=== PATIENT | male | born 1965 | race Caucasian/White ===

== ENCOUNTER 2016-08-28 21:34 | Inpatient (IN) | payer OTHER ==
[~2016-08-28] VITALS: Ht 188 cm; Wt 79.4 kg
[~2016-08-28 21:34] MED LIST: ATIVAN0.5 MG OR; IBUPROFEN600 MG PO; KLONOPIN1 MG PO; LEVOTHROID175 MCG PO; LEVOTHROID200 MCG PO; LEVOTHYROXIN100 MCG AD; LEVOTHYROXIN175 MCG PO; LORTAB 7.57.5 MG PO; MOTRIN800 MG PO; NEURONTIN300 MG PO; PRILOSEC20 MG/CAP PO; SEROQUEL25 MG PO; SIMVASTATIN10 MG PO; TORADOL OR; UNKNOWN CHOLESTEROL; VALPROIC ACD250 M1 PO
[2016-08-28 22:39] LABS: HEMATOCRIT 25.5 % (39.0-50.0); HEMOGLOBIN 8.4 g/dl (14.0-18.0); MEAN CELL VOLUME 94.8 fL CALC (80.0-100.0); MEAN CORPUSCULAR HGB 31.2 pG CALC (26.0-32.0); MEAN CORPUSCULAR HGB CONC 32.9 g/L CALC (32.0-36.0); NEUT# 4.61 thou/uL (1.82-7.42); RED BLOOD COUNT 2.69 mill/uL (4.70-6.10); RED CELL DISTRI WIDTH 14.3 % (11.5-15.5)
[2016-08-28 22:47] LABS: ALBUMIN 2.2 g/dL (3.2-5.0); ALKALINE PHOSPHATASE 24 u/l (38-126); ANION GAP 7 (6-22 (CALC)); BILIRUBIN, TOTAL 0.9 mg/dL (0.0-1.4); BUN 13 mg/dL (9-20); BUN/CREATININE RATIO 18 (12-20 (CALC)); CALCIUM 6.9 mg/dL (8.4-10.2); CARBON DIOXIDE 27 mmol/l (22-30); CHLORIDE 109 mmol/l (95-108); CREATININE 0.7 mg/dL (0.7-1.3); GFR > 60 ML/MIN (>=60 (CALC)); GFR FOR AFR.AMER. > 60 ML/MIN (>=60 (CALC)); GLUCOSE 93 mg/dL (75-110); POTASSIUM 4.1 mmol/l (3.5-5.1); SGOT/AST 29 u/l (17-59); SGPT/ALT 33 u/l (21-72); SODIUM 139 mmol/l (137-146); TOTAL PROTEIN 4.3 g/dL (6.3-8.2)
[2016-08-28] MEDS ORDERED: ASPIRIN LOW DOS81 M1 PO (23:10)
[2016-08-28] MEDS ORDERED: CLARITIN10 M2 PO (23:11)
[2016-08-28] MEDS ORDERED: OMEGA 31000 MG PO (23:13)
[2016-08-28] MEDS ORDERED: ALLERGY NA50 MCG/ACT (23:13)
[2016-08-29] VITALS (13 sets, daily range): BP systolic 87–114; BP diastolic 42–74
[2016-08-29 00:13] LABS: MYOGLOBIN 81 ng/mL (0 - 121)
[2016-08-29 04:42] LABS: URINE BILIRUBIN - DIPSTICK NEGATIVE (NEGATIVE); URINE BLOOD DIPSTICK MODERATE (NEGATIVE); URINE CLARITY CLEAR; URINE COLOR YELLOW; URINE GLUCOSE - DIPSTICK NEGATIVE (NEGATIVE); URINE KETONE NEGATIVE (NEGATIVE); URINE LEUK ESTERASE NEGATIVE (NEGATIVE); URINE NITRITE - DIPSTICK NEGATIVE (Negative); URINE PROTEIN - DIPSTICK NEGATIVE (NEG-TRACE); URINE UROBILINOGEN - DIPSTICK 0.2 E.U./dL (0.2)
[2016-08-29 04:47] LABS: BARBITURATES NEGATIVE (NEGATIVE); COCAINE NEGATIVE (NEGATIVE); METHADONE NEGATIVE (NEGATIVE); OXCYCODONE NEGATIVE (NEGATIVE); TETRAHYDROCANNABIONOL NEGATIVE (NEGATIVE); TRICYLIC ANTIDEPRESSANTS NEGATIVE (NEGATIVE)
[2016-08-29 04:51] LABS: URINE BACTERIA FEW hpf; URINE MUCUS FEW hpf (NONE-FEW); URINE SQUAMOUS EPITHELIAL CELL FEW EPI/hpf (0-FEW)
[2016-08-29 06:37] LABS: HEMATOCRIT 26.6 % (39.0-50.0); HEMOGLOBIN 8.7 g/dl (14.0-18.0); MEAN CORPUSCULAR HGB 30.7 pG CALC (26.0-32.0); MEAN CORPUSCULAR HGB CONC 32.7 g/L CALC (32.0-36.0); RED BLOOD COUNT 2.83 mill/uL (4.70-6.10); RED CELL DISTRI WIDTH 14.3 % (11.5-15.5)
[2016-08-29 06:52] LABS: PROTHROMBIN TIME 11.3 SECONDS (9.0-12.5)
== END 2016-08-29 15:35 | disposition designated cancer center or children's hospital (05) | DRG 605 ==
LOC: ENPENDDIS → ED 21:34 → ED-I 23:50 → ED 08-29 00:19 → ICU 08-29 00:20
PROVIDERS: Emergency Medicine; ADMIT Internal Medicine; ATTEND Internal Medicine
PROC: 0HQDXZZ Repair Right Lower Arm Skin, External Approach (ICD-10-PCS; principal; 2016-08-29)
DX: S51.011A Laceration without foreign body of right elbow, initial encounter (principal); I95.9 Hypotension, unspecified; D62 Acute posthemorrhagic anemia; F17.210 Nicotine dependence, cigarettes, uncomplicated; E03.9 Hypothyroidism, unspecified; F31.9 Bipolar disorder, unspecified; F41.9 Anxiety disorder, unspecified; R73.9 Hyperglycemia, unspecified; F60.9 Personality disorder, unspecified; X78.9XXA Intentional self-harm by unspecified sharp object, initial encounter; Y92.149 Unspecified place in prison as the place of occurrence of the external cause

== ENCOUNTER 2016-09-14 19:30 | Emergency (ER) | payer OTHER ==
[~2016-09-14] VITALS: Ht 188 cm; Wt 77.0 kg
[~2016-09-14 19:30] MED LIST changes: +ALLERGY NA50 MCG/ACT; +ASPIRIN LOW DOS81 M1 PO; +CLARITIN10 M2 PO; +OMEGA 31000 MG PO
[2016-09-14 20:57] VITALS: BP 102/61
== END 2016-09-14 21:06 | disposition designated cancer center or children's hospital (05) | DRG 921 ==
LOC: ED 19:30
DX: T81.33XA Disruption of traumatic injury wound repair, initial encounter (principal); E03.9 Hypothyroidism, unspecified; F41.9 Anxiety disorder, unspecified; F31.9 Bipolar disorder, unspecified; F60.9 Personality disorder, unspecified; Z91.5 Personal history of self-harm

== ENCOUNTER 2016-10-18 20:23 | Emergency (ER) | payer OTHER ==
[~2016-10-18] VITALS: Ht 188 cm; Wt 79.5 kg
[2016-10-18] MEDS ORDERED: FE TABS325 MG PO (21:06)
[2016-10-18 22:18] VITALS: BP 130/32
== END 2016-10-18 22:15 | disposition designated cancer center or children's hospital (05) | DRG 605 ==
LOC: ED 20:23
PROC: 0HQ7XZZ Repair Abdomen Skin, External Approach (ICD-10-PCS; principal; 2016-10-18)
DX: S31.113A Laceration without foreign body of abdominal wall, right lower quadrant without penetration into peritoneal cavity, initial encounter (principal); X78.8XXA Intentional self-harm by other sharp object, initial encounter; Y92.149 Unspecified place in prison as the place of occurrence of the external cause

== ENCOUNTER 2017-04-05 18:40 | Emergency (ER) | payer OTHER ==
[~2017-04-05] VITALS: Ht 188 cm; Wt 88.6 kg
[~2017-04-05 18:40] MED LIST changes: +FE TABS325 MG PO
[2017-04-05] MEDS ORDERED: ULTRAM50 M1 PO (21:32)
[2017-04-05] MEDS ORDERED: OMNICEF300 MG PO (21:32)
[2017-04-05 21:47] VITALS: BP 1540/88
== END 2017-04-05 21:40 | disposition designated cancer center or children's hospital (05) | DRG 155 ==
LOC: ED 18:40
PROC: 2W3DX1Z Immobilization of Left Lower Arm using Splint (ICD-10-PCS; principal; 2017-04-05)
DX: S02.2XXA Fracture of nasal bones, initial encounter for closed fracture (principal); S02.81XA Fracture of other specified skull and facial bones, right side, initial encounter for closed fracture; S52.202A Unspecified fracture of shaft of left ulna, initial encounter for closed fracture; J34.2 Deviated nasal septum; Y04.0XXA Assault by unarmed brawl or fight, initial encounter; Y92.149 Unspecified place in prison as the place of occurrence of the external cause

== ENCOUNTER 2017-05-11 14:34 | Emergency (ER) | payer OTHER ==
[~2017-05-11] VITALS: Ht 188 cm; Wt 91.0 kg
[~2017-05-11 14:34] MED LIST changes: +OMNICEF300 MG PO; +ULTRAM50 M1 PO
[2017-05-11 15:17] VITALS: BP 136/82
== END 2017-05-11 15:48 | disposition designated cancer center or children's hospital (05) | DRG 605 ==
LOC: ED 14:34
PROC: 0HQDXZZ Repair Right Lower Arm Skin, External Approach (ICD-10-PCS; principal; 2017-05-11)
DX: S51.811A Laceration without foreign body of right forearm, initial encounter (principal); X78.8XXA Intentional self-harm by other sharp object, initial encounter

== ENCOUNTER 2017-08-11 05:51 | Emergency (ER) | payer OTHER ==
[~2017-08-11] VITALS: Ht 188 cm; Wt 91.0 kg
[2017-08-11 07:05] VITALS: BP 118/84
== END 2017-08-11 07:16 | disposition designated cancer center or children's hospital (05) | DRG 605 ==
LOC: ED 05:51
PROC: 0HQEXZZ Repair Left Lower Arm Skin, External Approach (ICD-10-PCS; principal; 2017-08-11)
PROC: 0HQDXZZ Repair Right Lower Arm Skin, External Approach (ICD-10-PCS; 2017-08-11)
PROC: 0HQ4XZZ Repair Neck Skin, External Approach (ICD-10-PCS; 2017-08-11)
DX: S11.91XA Laceration without foreign body of unspecified part of neck, initial encounter (principal); F31.9 Bipolar disorder, unspecified; S51.811A Laceration without foreign body of right forearm, initial encounter; S51.812A Laceration without foreign body of left forearm, initial encounter; X78.8XXA Intentional self-harm by other sharp object, initial encounter; Y92.149 Unspecified place in prison as the place of occurrence of the external cause; F41.9 Anxiety disorder, unspecified

== ENCOUNTER 2017-11-15 15:07 | Emergency (ER) | payer OTHER ==
[~2017-11-15] VITALS: Ht 188 cm; Wt 100.0 kg
[2017-11-15] MEDS ORDERED: KEFLEX500 MG PO (16:09)
[2017-11-15 16:38] VITALS: BP 157/94
== END 2017-11-15 16:38 | disposition home or self-care (01) | DRG 605 ==
LOC: ED 15:07
PROC: 0HQ4XZZ Repair Neck Skin, External Approach (ICD-10-PCS; principal; 2017-11-15)
PROC: 0HQDXZZ Repair Right Lower Arm Skin, External Approach (ICD-10-PCS; 2017-11-15)
DX: S11.91XA Laceration without foreign body of unspecified part of neck, initial encounter (principal); S51.811A Laceration without foreign body of right forearm, initial encounter; F41.9 Anxiety disorder, unspecified; F31.9 Bipolar disorder, unspecified; E03.9 Hypothyroidism, unspecified; N40.0 Benign prostatic hyperplasia without lower urinary tract symptoms; X78.8XXA Intentional self-harm by other sharp object, initial encounter; Y92.149 Unspecified place in prison as the place of occurrence of the external cause

== ENCOUNTER 2017-12-31 19:33 | Emergency (ER) | payer OTHER ==
[~2017-12-31] VITALS: Ht 188 cm; Wt 91.8 kg
[~2017-12-31 19:33] MED LIST changes: +KEFLEX500 MG PO; +LEVOTHYROXIN100 MCG PO; -LEVOTHYROXIN175 MCG PO
[2017-12-31] MEDS ORDERED: AMOXICILLIN500 MG PO (21:03)
[2017-12-31 21:25] VITALS: BP 126/67
[2018-01-01] MEDS ORDERED: LAMICTAL150 M1 PO (03:21)
[2018-01-01] MEDS ORDERED: LEVOTHYROXIN125 MCG PO (03:25)
[2018-01-01] MEDS ORDERED: LORATADINE10 M1 PO (03:28)
== END 2017-12-31 21:27 | disposition home or self-care (01) | DRG 605 ==
LOC: ED 19:33
PROC: 0HQEXZZ Repair Left Lower Arm Skin, External Approach (ICD-10-PCS; principal; 2017-12-31)
PROC: 0HQDXZZ Repair Right Lower Arm Skin, External Approach (ICD-10-PCS; 2017-12-31)
DX: S51.812A Laceration without foreign body of left forearm, initial encounter (principal); S51.811A Laceration without foreign body of right forearm, initial encounter; F31.9 Bipolar disorder, unspecified; E03.9 Hypothyroidism, unspecified; F41.9 Anxiety disorder, unspecified; X78.9XXA Intentional self-harm by unspecified sharp object, initial encounter; Y92.149 Unspecified place in prison as the place of occurrence of the external cause

== ENCOUNTER 2018-01-01 03:07 | Emergency (ER) | payer OTHER ==
[~2018-01-01] VITALS: Ht 185.4 cm; Wt 91.8 kg
[~2018-01-01 03:07] MED LIST changes: +AMOXICILLIN500 MG PO
[2018-01-01] MEDS ORDERED: LAMICTAL150 M1 PO (03:21)
[2018-01-01] MEDS ORDERED: LEVOTHYROXIN125 MCG PO (03:25)
[2018-01-01] MEDS ORDERED: LORATADINE10 M1 PO (03:28)
[2018-01-01 03:35] VITALS: BP 131/77
== END 2018-01-01 03:54 | disposition designated cancer center or children's hospital (05) | DRG 605 ==
LOC: ED 03:07
PROC: 0HQEXZZ Repair Left Lower Arm Skin, External Approach (ICD-10-PCS; principal; 2018-01-01)
PROC: 0HQDXZZ Repair Right Lower Arm Skin, External Approach (ICD-10-PCS; 2018-01-01)
DX: S51.812A Laceration without foreign body of left forearm, initial encounter (principal); S51.811A Laceration without foreign body of right forearm, initial encounter; L08.9 Local infection of the skin and subcutaneous tissue, unspecified; X78.9XXA Intentional self-harm by unspecified sharp object, initial encounter; Y92.149 Unspecified place in prison as the place of occurrence of the external cause

== ENCOUNTER 2019-02-09 18:23 | Emergency (ER) | payer OTHER ==
[~2019-02-09] VITALS: Ht 185.4 cm; Wt 86.0 kg
[~2019-02-09 18:23] MED LIST changes: +LAMICTAL150 M1 PO; +LEVOTHYROXIN125 MCG PO; +LORATADINE10 M1 PO
[2019-02-09] MEDS ORDERED: KEFLEX500 MG PO (19:44)
[2019-02-09 20:05] VITALS: BP 115/73
== END 2019-02-09 20:05 | disposition designated cancer center or children's hospital (05) | DRG 605 ==
LOC: ED 18:23
PROC: 0HQEXZZ Repair Left Lower Arm Skin, External Approach (ICD-10-PCS; principal; 2019-02-09)
DX: S51.812A Laceration without foreign body of left forearm, initial encounter (principal); S56.922A Laceration of unspecified muscles, fascia and tendons at forearm level, left arm, initial encounter; X78.8XXA Intentional self-harm by other sharp object, initial encounter; Y92.143 Cell of prison as the place of occurrence of the external cause; Z91.5 Personal history of self-harm

== ENCOUNTER 2019-03-03 18:55 | Emergency (ER) | payer OTHER ==
[~2019-03-03] VITALS: Ht 185.4 cm; Wt 90.0 kg
[2019-03-03 22:00] VITALS: BP 112/60
[2019-03-03 22:06] LABS: HEMATOCRIT 23.8 % (39.0-50.0); HEMOGLOBIN 7.6 g/dl (14.0-18.0); IMMATURE GRANULOCYTES 0.5 % (0.0-5.0); MEAN CORPUSCULAR HGB 27.6 pG CALC (26.0-32.0); MEAN CORPUSCULAR HGB CONC 31.9 g/L CALC (32.0-36.0); NEUT# 3.94 thou/uL (1.82-7.42); RED BLOOD COUNT 2.75 mill/uL (4.70-6.10); RED CELL DISTRI WIDTH 15.3 % (11.5-15.5)
[2019-03-03 22:08] LABS: MEAN CELL VOLUME 86.5 fL CALC (80.0-100.0)
[2019-03-03] MEDS ORDERED: LIPITOR20 M1 PO (22:09)
[2019-03-03] MEDS ORDERED: PRILOSEC20 MG/CAP PO (22:10)
[2019-03-03] MEDS ORDERED: LEVOTHYROXIN100 MCG PO (22:11)
[2019-03-03] MEDS ORDERED: LEVOTHYROXIN75 MCG PO (22:11)
[2019-03-03] MEDS ORDERED: MELATONIN10 MG PO (22:12)
[2019-03-03] MEDS ORDERED: MUPIROCIN2 % EX (22:13)
[2019-03-03 22:28] LABS: PROTHROMBIN TIME 10.7 SECONDS (9.0-12.5)
[2019-03-03 22:30] LABS: ANION GAP 10 (6-22 (CALC)); BILIRUBIN, TOTAL 0.6 mg/dL (0.0-1.4); BUN 14 mg/dL (9-20); BUN/CREATININE RATIO 17 (12-20 (CALC)); CARBON DIOXIDE 25 mmol/l (22-30); CHLORIDE 105 mmol/l (95-108); CREATININE 0.9 mg/dL (0.7-1.3); GFR > 60 ML/MIN (>=60 (CALC)); GFR FOR AFR.AMER. > 60 ML/MIN (>=60 (CALC)); POTASSIUM 4.1 mmol/l (3.5-5.1); SGOT/AST 25 u/l (17-59); SODIUM 136 mmol/l (137-146)
[2019-03-03 22:31] LABS: ALBUMIN 3.2 g/dL (3.2-5.0); ALKALINE PHOSPHATASE 45 u/l (38-126); TOTAL PROTEIN 5.6 g/dL (6.3-8.2)
== END 2019-03-03 22:10 | disposition short-term general hospital (02) | DRG 914 ==
LOC: ED 18:55 → ED-I 20:31 → ED 22:10
PROC: 0HQEXZZ Repair Left Lower Arm Skin, External Approach (ICD-10-PCS; principal; 2019-03-03)
PROC: 0HQDXZZ Repair Right Lower Arm Skin, External Approach (ICD-10-PCS; 2019-03-03)
DX: S55.211A Laceration of vein at forearm level, right arm, initial encounter (principal); S51.811A Laceration without foreign body of right forearm, initial encounter; S51.812A Laceration without foreign body of left forearm, initial encounter; T18.2XXA Foreign body in stomach, initial encounter; E03.9 Hypothyroidism, unspecified; F31.9 Bipolar disorder, unspecified; F41.9 Anxiety disorder, unspecified; X78.9XXA Intentional self-harm by unspecified sharp object, initial encounter; Y92.149 Unspecified place in prison as the place of occurrence of the external cause; X83.8XXA Intentional self-harm by other specified means, initial encounter; Y92.238 Other place in hospital as the place of occurrence of the external cause; Z91.5 Personal history of self-harm